=== PATIENT | male | born 1960 | race Caucasian/White ===

== ENCOUNTER 2017-04-15 09:47 | Inpatient (IN) | payer MEDICARE, MEDICAID ==
[~2017-04-15] VITALS: Ht 157.5 cm; Wt 72.6 kg
[~2017-04-15 09:47] MED LIST: AMLO10TA4 PO; ASPI-1159 PO; ATEN50TA PO; BENA40TA9 PO; CALC667T2 PO; GLIP5TAB12 PO; NEPVIT PO; PRAV40TA58 PO; SEVE800T8 PO
[2017-04-15 10:40] LABS: BASOPHILS % 2.1 % (0.0-2.0); EOSINOPHILS % 11.3 % (0.0-5.0); HEMATOCRIT. 28.5 % (42.0-52.0); HEMOGLOBIN. 9.4 g/dL (14.0-18.0); LYMPHOCYTES % 19.1 % (20.0-50.0); MEAN CORPUSCULAR HEMOGLOBIN 31.5 pg (28.0-32.0); MEAN CORPUSCULAR VOLUME 95.8 fL (80.0-94.0); MEAN PLATELET VOLUME 8.7 fl (7.4-10.4); MONOCYTES % 7.5 % (2.0-8.0); PLATELET 164 x1000/uL (130-400); RED BLOOD CELL COUNT 2.98 mill/uL (4.7-6.1); RED CELL DISTRIBUTION WIDTH 14.4 % (11.6-14.6)
[2017-04-15 10:47] LABS: INR 1.1
[2017-04-15 10:57] LABS: CHLORIDE 100 mEq/L (98-107)
[2017-04-15] MEDS ORDERED: INSULIN REGULAR (HUMULIN R) 300UNITS/3ML IV ONE (11:15)
[2017-04-15] MEDS ORDERED: SODIUM BICARBONATE 8.4% 1 MEQ/ML 50ML SYR IV ONE (11:15)
[2017-04-15] MEDS ORDERED: DEXTROSE 50% WATER 50ML SYRINGE IV ONE ×2 (11:15→13:43)
[2017-04-15] MEDS ORDERED: ALBUTEROL (0.083%) 2.5MG/3ML NEB HHN ONE (11:15)
[2017-04-15] MEDS ORDERED: DOCUSATE SODIUM 100MG CAPSULE PO PRN (13:15)
[2017-04-15] MEDS ORDERED: ACETAMINOPHEN 650MG/20.3ML UDC GT PRN (13:15)
[2017-04-15] MEDS ORDERED: GUAIFENESIN 200MG/10ML SUGAR FREE UDC PO PRN (13:15)
[2017-04-15] MEDS ORDERED: DIPHENHYDRAMINE 50MG/ML VIAL IV PRN (13:15)
[2017-04-15] MEDS ORDERED: HYDROCODONE/ACETAMINOPHEN 5/325MG TABLET PO PRN (13:15)
[2017-04-15] MEDS ORDERED: MORPHINE SULFATE 4 MG/ML CPJ (NOT FOR IM USE) IV PRN (13:15)
[2017-04-15] MEDS ORDERED: MAGNESIUM/ALUMINUM HYDROXIDE/SIMETHICONE 30ML UDC PO PRN (13:15)
[2017-04-15] MEDS ORDERED: ENOXAPARIN 40MG/0.4ML SYR SUBCUT SCH (13:15)
[2017-04-15] MEDS ORDERED: NA PHOS,M-B/NA PHOS,DI-BA ENEMA 118ML PR PRN (13:15)
[2017-04-15] MEDS ORDERED: LORAZEPAM 2MG/ML CPJ IV PRN (13:15)
[2017-04-15] MEDS ORDERED: IPRATROPIUM/ALBUTEROL 0.5-3(2.5)MG/3ML NEB INH PRN (13:15)
[2017-04-15] MEDS ORDERED: ONDANSETRON HCL 4MG/2ML INJ IV PRN (13:15)
[2017-04-15] MEDS ORDERED: ALBUTEROL (0.5%) 2.5MG/0.5ML NEB HHN ONE (13:20)
[2017-04-15 17:02] VITALS: BP 180/61
[2017-04-15 17:20] VITALS: BP 175/85
[2017-04-15] MEDS ORDERED: METO100T16 PO (17:44)
[2017-04-15] MEDS ORDERED: SEVE800T8 PO (17:44)
[2017-04-15] MEDS: ENOXAPARIN 30MG/0.3ML SYR SUBCUT SCH ×2 (18:00→18:26)
[2017-04-15] MEDS: CLONIDINE 0.1MG TABLET PO PRN (18:26)
[2017-04-15] MEDS ORDERED: DEXTROSE 50% WATER 50ML SYRINGE IV PRN (18:45)
[2017-04-15 20:00] VITALS: BP 167/72
[2017-04-15] MEDS: INSULIN LISPRO 100 UNITS/ML SUBCUT SCH ×2 (21:00→21:13)
[2017-04-15] MEDS: BLOOD SUGAR DIAGNOSTIC STRIP TEST SCH (21:13)
[2017-04-16] VITALS: BP 173/66
[2017-04-16 04:00] VITALS: BP 165/68
[2017-04-16] MEDS: CLONIDINE 0.1MG TABLET PO PRN ×2 (05:13→21:52)
[2017-04-16 05:33] LABS: BASOPHILS % 1.6 % (0.0-2.0); EOSINOPHILS % 6.3 % (0.0-5.0); HEMATOCRIT. 26.8 % (42.0-52.0); HEMOGLOBIN. 9.1 g/dL (14.0-18.0); LYMPHOCYTES % 16.7 % (20.0-50.0); MEAN CORPUSCULAR HEMOGLOBIN 32.2 pg (28.0-32.0); MEAN CORPUSCULAR VOLUME 94.9 fL (80.0-94.0); MEAN PLATELET VOLUME 8.6 fl (7.4-10.4); MONOCYTES % 7.4 % (2.0-8.0); PLATELET 159 x1000/uL (130-400); RED BLOOD CELL COUNT 2.82 mill/uL (4.7-6.1); RED CELL DISTRIBUTION WIDTH 14.5 % (11.6-14.6)
[2017-04-16 06:28] LABS: CHLORIDE 101 mEq/L (98-107); HDL CHOLESTEROL 25 mg/dL (40-59)
[2017-04-16 06:38] LABS: LDL CHOLESTEROL 60 mg/dL (5-100); T4 FREE 1.09 ng/dL (0.76-1.46)
[2017-04-16] MEDS: BLOOD SUGAR DIAGNOSTIC STRIP TEST SCH ×4 (07:12→21:43)
[2017-04-16] MEDS: INSULIN LISPRO 100 UNITS/ML SUBCUT SCH ×4 (07:32→21:00)
[2017-04-16 08:00] VITALS: BP 147/62
[2017-04-16] MEDS: METOPROLOL TARTRATE 100MG TABLET PO SCH (09:02)
[2017-04-16] MEDS: ASPIRIN 81MG EC TABLET PO SCH (09:02)
[2017-04-16] MEDS: SEVELAMER CARBONATE 800 MG TABLET PO SCH ×3 (09:02→18:24)
[2017-04-16] MEDS ORDERED: REGADENOSON 0.4 MG/5 ML IV ONE ×2 (10:15→13:49)
[2017-04-16 12:00] VITALS: BP 147/55
[2017-04-16] MEDS ORDERED: SODIUM CHLORIDE 0.9% 10ML VIAL ONE (15:22)
[2017-04-16 16:00] VITALS: BP 149/82
[2017-04-16] MEDS: ENOXAPARIN 30MG/0.3ML SYR SUBCUT SCH (18:00)
[2017-04-16 20:00] VITALS: BP 165/52
[2017-04-16] MEDS ORDERED: EPOETIN ALFA 10000UNITS/ML VIAL SUBCUT SCH (21:00)
[2017-04-16] MEDS ORDERED: ATORVASTATIN CALCIUM 20MG TABLET PO SCH (21:00)
[2017-04-17] VITALS (8 sets, daily range): BP systolic 142–172; BP diastolic 51–86
[2017-04-17 07:09] LABS: BASOPHILS % 2.1 % (0.0-2.0); EOSINOPHILS % 10.3 % (0.0-5.0); HEMATOCRIT. 26.3 % (42.0-52.0); HEMOGLOBIN. 8.9 g/dL (14.0-18.0); LYMPHOCYTES % 18.9 % (20.0-50.0); MEAN CORPUSCULAR HEMOGLOBIN 32.3 pg (28.0-32.0); MEAN CORPUSCULAR VOLUME 95.6 fL (80.0-94.0); MEAN PLATELET VOLUME 8.7 fl (7.4-10.4); MONOCYTES % 7.6 % (2.0-8.0); NEUTROPHILS % 61.1 % (40.0-76.0); PLATELET 150 x1000/uL (130-400); RED BLOOD CELL COUNT 2.75 mill/uL (4.7-6.1); RED CELL DISTRIBUTION WIDTH 14.5 % (11.6-14.6)
[2017-04-17] MEDS: INSULIN LISPRO 100 UNITS/ML SUBCUT SCH ×2 (07:21→13:10)
[2017-04-17] MEDS: BLOOD SUGAR DIAGNOSTIC STRIP TEST SCH ×2 (07:21→12:39)
[2017-04-17] MEDS: ASPIRIN 81MG EC TABLET PO SCH (09:08)
[2017-04-17] MEDS: SEVELAMER CARBONATE 800 MG TABLET PO SCH (09:08)
[2017-04-17] MEDS: METOPROLOL TARTRATE 100MG TABLET PO SCH (18:08)
== END 2017-04-17 18:10 | disposition home or self-care (01) | DRG 291 ==
LOC: ER 11:40 → 7WST 11:43 → EDBEDREQTM 11:45 → EDBEDREQ 11:45 → ER 11:56 → ENRESERV 14:07 → 7WST 04-16 00:47
PROVIDERS: ADMIT Internal Medicine; ATTEND Internal Medicine
DX: I13.2 Hypertensive heart and chronic kidney disease with heart failure and with stage 5 chronic kidney disease, or end stage renal disease (principal); I50.33 Acute on chronic diastolic (congestive) heart failure; E11.22 Type 2 diabetes mellitus with diabetic chronic kidney disease; E46 Unspecified protein-calorie malnutrition; N18.6 End stage renal disease; E87.5 Hyperkalemia; D63.8 Anemia in other chronic diseases classified elsewhere; E78.5 Hyperlipidemia, unspecified; I25.10 Atherosclerotic heart disease of native coronary artery without angina pectoris; Z99.2 Dependence on renal dialysis; Z68.29 Body mass index [BMI] 29.0-29.9, adult
CPT/HCPCS: 36415; 71045; 78452; 80048; 80061; 82962; 83880; 84439; 84443; 84484; 93005; 93017; 93306; 94640; 96374; 99285; A9500; J0885; J1650; J1815; J2785; J3490; J7030; J7611

== ENCOUNTER 2018-03-28 13:47 | Inpatient (IN) | payer MEDICARE, MEDICAID ==
[~2018-03-28] VITALS: Ht 170.2 cm; Wt 63.7 kg
[~2018-03-28 13:47] MED LIST changes: -AMLO10TA4 PO; -ASPI-1159 PO; -ATEN50TA PO; -BENA40TA9 PO; -CALC667T2 PO; -GLIP5TAB12 PO; +METO100T16 PO; -NEPVIT PO; -PRAV40TA58 PO
[2018-03-28] MEDS ORDERED: METHYLPREDNISOLONE SOD SUCC 125 MG/2 ML VIAL IV STA (13:54)
[2018-03-28] MEDS ORDERED: IPRATROPIUM BROMIDE (0.02%) 0.5MG/2.5ML NEB HHN STA (13:54)
[2018-03-28] MEDS ORDERED: ALBUTEROL (0.083%) 2.5MG/3ML NEB HHN STA (13:54)
[2018-03-28 14:36] LABS: EOSINOPHILS % 2.5 % (0.0-5.0); HEMATOCRIT. 41.5 % (42.0-52.0); LYMPHOCYTES % 16.6 % (20.0-50.0); MEAN CORPUSCULAR HEMOGLOBIN 29.8 pg (28.0-32.0); MEAN CORPUSCULAR VOLUME 94.8 fL (80.0-94.0); MEAN PLATELET VOLUME 9.1 fl (7.4-10.4); MONOCYTES % 3.2 % (2.0-8.0); NEUTROPHILS % 76.7 % (40.0-76.0); PLATELET 245 x1000/uL (130-400); RED BLOOD CELL COUNT 4.38 mill/uL (4.7-6.1); RED CELL DISTRIBUTION WIDTH 17.5 % (11.6-14.6)
[2018-03-28 14:41] LABS: CHLORIDE 101 mEq/L (98-107)
[2018-03-28 14:44] LABS: INR 1.1; PARTIAL THROMBOPLASTIN TIME 25.9 sec (23.4-31.0)
[2018-03-28 14:48] LABS: PHOSPHORUS 5.6 mg/dL (2.5-4.9)
[2018-03-28 16:02] LABS: BG BILEVEL POS AIRWAY PRESSURE 15/5; BG CARBOXYHEMOGLOBIN 1.5 % (0.5-1.5); BG DEOXYHEMOGLOBIN 4.6 % (0.0-5.0); BG FRACTION INSPIRED OXYGEN 50; BG HCO3 ACT 21.9 mmol/L (22.0-26.0); BG METHEMOGLOBIN 0.3 % (0.0-1.5); BG OXYGEN SATURATION 95.3 % (92.0-98.5); BG OXYHEMOGLOBIN 93.6 % (94.0-97.0); BG PCO2 34.3 mmHg (35.0-45.0); BG PH 7.423 (7.350-7.450); BG PO2 82.6 mmHg (75.0-100.0); BG SAMPLE SITE RIGHT RADIAL; BG TOTAL HEMOGLOBIN 11.6 g/dL (12.0-18.0); BG VENT MODE MASK - BIPAP; BG VENT RATE 16 set
[2018-03-28 17:22] VITALS: BP 108/56
[2018-03-28 17:29] VITALS: BP 133/79
[2018-03-28] MEDS ORDERED: GLIP5TAB12 PO (18:51)
[2018-03-28] MEDS ORDERED: nephro-vite (18:51)
[2018-03-28] MEDS ORDERED: METO-385 PO (18:51)
[2018-03-28] MEDS ORDERED: AMLO10TA4 MT (18:51)
[2018-03-28] MEDS ORDERED: ASPI-1159 PO (18:51)
[2018-03-28] MEDS ORDERED: PRAV40TA58 PO (18:57)
[2018-03-28] MEDS ORDERED: CALC667T2 PO (18:57)
[2018-03-28] MEDS ORDERED: renagel (18:57)
[2018-03-28] MEDS ORDERED: AMLO10TA4 PO (18:57)
[2018-03-28] MEDS ORDERED: CINA30 MT (18:57)
[2018-03-28] MEDS ORDERED: ONDANSETRON HCL 4MG/2ML INJ IV PRN (19:00)
[2018-03-28] MEDS ORDERED: GUAIFENESIN 200MG/10ML SUGAR FREE UDC PO PRN (19:00)
[2018-03-28] MEDS ORDERED: MAGNESIUM/ALUMINUM HYDROXIDE/SIMETHICONE 30ML UDC PO PRN (19:00)
[2018-03-28] MEDS ORDERED: ACETAMINOPHEN 325MG TABLET PO PRN (19:00)
[2018-03-28] MEDS ORDERED: HYDRALAZINE 20MG/ML VIAL IV PRN (19:00)
[2018-03-28] MEDS ORDERED: CLONIDINE 0.1MG TABLET PO PRN (19:00)
[2018-03-28] MEDS ORDERED: HYDROMORPHONE HCL/PF 2MG/ML CPJ IV PRN (19:00)
[2018-03-28] MEDS ORDERED: HYDROCODONE/ACETAMINOPHEN 10/325MG TABLET PO PRN (19:00)
[2018-03-28] MEDS ORDERED: DIPHENHYDRAMINE 50MG/ML VIAL IV PRN (19:00)
[2018-03-28] MEDS ORDERED: IPRATROPIUM/ALBUTEROL 0.5-3(2.5)MG/3ML NEB INH PRN (19:00)
[2018-03-28] MEDS ORDERED: LORAZEPAM 2MG/ML CPJ IV PRN (19:00)
[2018-03-28] MEDS ORDERED: DOCUSATE SODIUM 100MG CAPSULE PO PRN (19:00)
[2018-03-28] MEDS ORDERED: DEXTROSE 50% WATER 50ML SYRINGE IV PRN (19:15)
[2018-03-28] MEDS: ENOXAPARIN 30MG/0.3ML SYR SUBCUT SCH (19:30)
[2018-03-28 20:00] VITALS: BP 148/85
[2018-03-28 22:00] VITALS: BP 121/39
[2018-03-28] MEDS: BLOOD SUGAR DIAGNOSTIC STRIP TEST SCH (22:00)
[2018-03-28] MEDS: INSULIN LISPRO 100 UNITS/ML SUBCUT SCH (22:15)
[2018-03-29] VITALS (9 sets, daily range): BP systolic 92–159; BP diastolic 38–81
[2018-03-29 00:37] LABS: CREATINE KINASE 48 IU/L (39-308)
[2018-03-29 00:38] LABS: CREATINE KINASE MB FRACTION < 1.0 ng/mL (0.5-3.6)
[2018-03-29] MEDS: BLOOD SUGAR DIAGNOSTIC STRIP TEST SCH ×4 (07:30→21:00)
[2018-03-29 07:42] LABS: HEMATOCRIT. 32.5 % (42.0-52.0); HEMOGLOBIN. 10.6 g/dL (14.0-18.0); MEAN CORPUSCULAR HEMOGLOBIN 30.5 pg (28.0-32.0); MEAN CORPUSCULAR VOLUME 93.5 fL (80.0-94.0); MEAN PLATELET VOLUME 8.9 fl (7.4-10.4); PLATELET 150 x1000/uL (130-400); RED BLOOD CELL COUNT 3.48 mill/uL (4.7-6.1); RED CELL DISTRIBUTION WIDTH 17.2 % (11.6-14.6)
[2018-03-29 07:46] LABS: CHLORIDE 98 mEq/L (98-107)
[2018-03-29] MEDS: INSULIN LISPRO 100 UNITS/ML SUBCUT SCH ×4 (08:00→21:00)
[2018-03-29 08:04] LABS: CREATINE KINASE MB FRACTION < 1.0 ng/mL (0.5-3.6); LDL CHOLESTEROL 39 mg/dL (5-100)
[2018-03-29 08:05] LABS: CREATINE KINASE 47 IU/L (39-308); HDL CHOLESTEROL 27 mg/dL (40-59)
[2018-03-29] MEDS: ASPIRIN 81MG EC TABLET PO SCH (08:39)
[2018-03-29] MEDS: SODIUM CHLORIDE 0.9% INJ 3ML FLUSH IVF SCH ×2 (14:00→22:10)
[2018-03-29] MEDS ORDERED: BENZONATATE 100MG CAPSULE PO PRN (15:30)
[2018-03-29] MEDS: CEFTRIAXONE 1 G PREMIX 50 ML IV SCH (19:11)
[2018-03-29] MEDS: AZITHROMYCIN 500 MG TABLET PO SCH (19:11)
[2018-03-29 20:54] LABS: PLATELET ESTIMATE NORMAL
[2018-03-29] MEDS: FLUTICASONE PROPIONATE 50MCG/SPRAY BOTTLE BOTHNSTRLS SCH (22:08)
[2018-03-29] MEDS: ENOXAPARIN 30MG/0.3ML SYR SUBCUT SCH (22:09)
[2018-03-30] VITALS: BP 92/51
[2018-03-30 04:00] VITALS: BP 132/39
[2018-03-30] MEDS: SODIUM CHLORIDE 0.9% INJ 3ML FLUSH IVF SCH ×2 (06:06→21:08)
[2018-03-30] MEDS: GLIPIZIDE 5MG TABLET PO SCH ×3 (06:07→06:09)
[2018-03-30] MEDS: BLOOD SUGAR DIAGNOSTIC STRIP TEST SCH ×4 (06:09→20:42)
[2018-03-30] MEDS: INSULIN LISPRO 100 UNITS/ML SUBCUT SCH ×4 (06:09→21:00)
[2018-03-30 08:00] VITALS: BP 117/52
[2018-03-30 08:02] LABS: BASOPHILS % 0.4 % (0.0-2.0); EOSINOPHILS % 0.8 % (0.0-5.0); HEMATOCRIT. 34.3 % (42.0-52.0); HEMOGLOBIN. 11.1 g/dL (14.0-18.0); MEAN CORPUSCULAR HEMOGLOBIN 30.5 pg (28.0-32.0); MEAN PLATELET VOLUME 8.9 fl (7.4-10.4); MONOCYTES % 6.8 % (2.0-8.0); PLATELET 165 x1000/uL (130-400); RED BLOOD CELL COUNT 3.65 mill/uL (4.7-6.1); RED CELL DISTRIBUTION WIDTH 17.5 % (11.6-14.6)
[2018-03-30] MEDS: ASPIRIN 81MG EC TABLET PO SCH (09:00)
[2018-03-30] MEDS: AZITHROMYCIN 500 MG TABLET PO SCH (09:14)
[2018-03-30] MEDS: FLUTICASONE PROPIONATE 50MCG/SPRAY BOTTLE BOTHNSTRLS SCH ×2 (09:15→21:08)
[2018-03-30] MEDS ORDERED: HEPARIN SODIUM 1,000 UNIT/1ML VIAL IV NR (10:45)
[2018-03-30 12:00] VITALS: BP 125/46
[2018-03-30 16:00] VITALS: BP 144/79
[2018-03-30] MEDS: CEFTRIAXONE 1 G PREMIX 50 ML IV SCH (16:21)
[2018-03-30 20:00] VITALS: BP 127/55
[2018-03-30] MEDS: ENOXAPARIN 30MG/0.3ML SYR SUBCUT SCH (21:09)
[2018-03-31] VITALS: BP 129/32
[2018-03-31 04:00] VITALS: BP 137/52
[2018-03-31] MEDS: BLOOD SUGAR DIAGNOSTIC STRIP TEST SCH (06:18)
[2018-03-31] MEDS: GLIPIZIDE 5MG TABLET PO SCH (06:45)
[2018-03-31] MEDS: SODIUM CHLORIDE 0.9% INJ 3ML FLUSH IVF SCH (06:45)
[2018-03-31] MEDS: INSULIN LISPRO 100 UNITS/ML SUBCUT SCH (06:48)
[2018-03-31 08:00] VITALS: BP 198/46
[2018-03-31 08:29] VITALS: BP 154/46
[2018-03-31] MEDS: AZITHROMYCIN 500 MG TABLET PO SCH (08:45)
[2018-03-31] MEDS: ASPIRIN 81MG EC TABLET PO SCH (08:45)
[2018-03-31] MEDS: FLUTICASONE PROPIONATE 50MCG/SPRAY BOTTLE BOTHNSTRLS SCH (09:00)
[2018-03-31 09:22] VITALS: BP 154/46
== END 2018-03-31 10:25 | disposition home or self-care (01) | DRG 291 ==
LOC: ER 14:00 → 5EST 15:38 → EDBEDREQ 15:40 → EDBEDREQSVC 15:40 → ENRESERV 15:46 → 8WST 03-29 18:17
PROVIDERS: ADMIT Internal Medicine; ATTEND Internal Medicine
PROC: 5A1D70Z Performance of Urinary Filtration, Intermittent, Less than 6 Hours Per Day (ICD-10-PCS; principal; 2018-03-28)
PROC: 02HV33Z Insertion of Infusion Device into Superior Vena Cava, Percutaneous Approach (ICD-10-PCS; 2018-03-28)
PROC: B548ZZA Ultrasonography of Superior Vena Cava, Guidance (ICD-10-PCS; 2018-03-28)
PROC: 5A09357 Assistance with Respiratory Ventilation, Less than 24 Consecutive Hours, Continuous Positive Airway Pressure (ICD-10-PCS; 2018-03-28)
PROC: 5A1D70Z Performance of Urinary Filtration, Intermittent, Less than 6 Hours Per Day (ICD-10-PCS; 2018-03-30)
DX: I13.2 Hypertensive heart and chronic kidney disease with heart failure and with stage 5 chronic kidney disease, or end stage renal disease (principal); I50.33 Acute on chronic diastolic (congestive) heart failure; N18.6 End stage renal disease; J96.01 Acute respiratory failure with hypoxia; R65.10 Systemic inflammatory response syndrome (SIRS) of non-infectious origin without acute organ dysfunction; E46 Unspecified protein-calorie malnutrition; I25.10 Atherosclerotic heart disease of native coronary artery without angina pectoris; D64.9 Anemia, unspecified; J06.9 Acute upper respiratory infection, unspecified; Z68.22 Body mass index [BMI] 22.0-22.9, adult; E11.22 Type 2 diabetes mellitus with diabetic chronic kidney disease; S61.205A Unspecified open wound of left ring finger without damage to nail, initial encounter; X58.XXXA Exposure to other specified factors, initial encounter; Y93.89 Activity, other specified; Y92.89 Other specified places as the place of occurrence of the external cause; Y99.8 Other external cause status; Z99.2 Dependence on renal dialysis; Z79.899 Other long term (current) drug therapy
CPT/HCPCS: 36415; 36569; 36600; 71045; 76937; 80048; 80061; 82375; 82550; 82553; 82805; 82962; 83605; 83735; 84100; 84145; 84439; 84443; 84484; 86850; 86900; 93005; 93970; 94640; 94660; 96374; 99291; C1725; J0360; J0696; J1644; J1650; J1815; J2930; J7050; J7611